=== PATIENT | female | born 1950 ===

== ENCOUNTER 2017-03-28 15:26 | Emergency (ER) | payer MEDICARE, MEDICAID ==
--- NOTE | ~2017-03-28 | ER ---
PATIENT'S NAME: SARATH VOGEL [facility] AGE: 66 Y [address] ROOM: [place] [id number] LOCATION: [facility] ADMIT DATE: 03/28/2017 ER/Outpatient Report DISCHARGE DATE: 03/28/2017 FAMILY PHYSICIAN: Luis Ríos MD ATTENDING PHYSICIAN: Joselito Flynn Time of Arrival: 1526 hours. Time of Evaluation: 1526 hours. CHIEF COMPLAINT: Lethargy and headache. HISTORY OF PRESENT ILLNESS: Daughter reports that the patient has been sleepy all day today. States she normally gets up early in the morning and is awake all day, however, today she seemed to be sleeping then. Daughter states she did go and run some errands, when she came back, the patient was still sleeping. When the patient does wake up, she was complaining of having a headache. The patient did agree to come to the ER for evaluation. The patient had to be assisted out of the car and onto a cart, but continues to complain of a headache. ALLERGIES: NO KNOWN ALLERGIES. CURRENT MEDICATIONS: Are on her chart, however, daughter reports that the patient has not been taking any of her medications for quite some time. When we called the Pharmacy, they said the last time they were refilled was in October. PAST MEDICAL HISTORY: Epx-ljnyrmv-dgrlbfplh diabetes, osteoporosis, hyperlipidemia, frequently has H. pylori. PAST SURGERIES: Cholecystectomy and hysterectomy. SOCIAL HISTORY: She lives at home, next door to her sister. Her grandson stays with her and helps her with food. The patient does smoke at least 2 packs per day and has for the last 40 years. Denies use of drugs and alcohol. Her in June 2016. Daughter reports she has been quite sad ever since that occurred. REVIEW OF SYSTEMS: All negative other than those mentioned in the HPI. PATIENT'S NAME: SARATH VOGEL [facility] AGE: 66 Y [address] ROOM: [place], [place] [address] LOCATION: [facility] ADMIT DATE: 03/28/2017 ER/Outpatient Report DISCHARGE DATE: 03/28/2017 FAMILY PHYSICIAN: Luis Ríos MD ATTENDING PHYSICIAN: Joselito Flynn PHYSICAL EXAMINATION: VITAL SIGNS: She weighed 72.4 kg, blood pressure is 171/77, pulse of 92, respirations 14, temperature of 98.8, and O2 saturation is 98% on room air. GENERAL: She is awake, is aware of the situation, knows her name, and states her birthday. States that she is cold and wants to go to sleep. She did vomit upon arrival to the room of bile colored fluid. Frequently states her head hurts. HEENT: Pupils are equal and reactive. EXTREMITIES: She moves all extremities strongly and equally. No peripheral edema noted. LUNGS: Lung sounds are clear throughout. HEART: Regular rate and rhythm. ABDOMEN: Quite round, distended, bowel sounds are present. EMERGENCY DEPARTMENT COURSE: Saline lock was initiated. Lab work was drawn. The patient was given Zofran 4 mg IV. Fluids were started at a wide-open rate. CBC shows a white count of 11.8, hemoglobin of 16.7, and hematocrit of 48.8. Chem panel: Sodium is 137, potassium is 4.2, and chloride is 104. Her Accu-Chek was 331. Her Chem panel shows a blood sugar of 348, BUN 13, and creatinine 0.8. GFR is greater than 60. Amylase is 19 with a lipase of 96. Lactate is 1.9. Acetone is negative. Procalcitonin is negative. EKG was completed, it shows a sinus rhythm. Cath UA was done, negative for leukocytes and nitrites, white blood cells negative, bacteria negative. Venous ABG shows a pH of 7.37, pCO2 of 43, and bicarb of 24.9. Head CT shows no acute abnormalities per the radiologist. Dr. Cole was contacted as she is on-call for Dr. Ríos. The patient was discussed. Did do a CT of the patient's abdomen, it shows a small pericardial effusion with lung basilar septal thickening and ground-glass opacities. No bowel obstruction is seen. She does have moderate hepatic steatosis and hepatomegaly. The patient continued to rest comfortably and did not have any more vomiting here in the ER. We did give her Toradol 30 mg IV for headache. Vital signs remained stable. I did discuss the patient with Dr. Cole again after the abdominal CT scan was completed. Dr. Cole reports patients blood sugars at office have been 290 or higher. IMPRESSION: Fatigue Hyperglycemia Headache PLAN: The patient is to be discharged home, rest, and talked with the family about encouraging the patient to take her medications as prescribed. The patient is to follow up with Dr. Ríos tomorrow and her daughter states that she will be sure and get her there. If they have any more problems tonight, they are welcome to return to the ER. Dr. Cole agreed with the plan of care. The patient and family agreed with the plan of care. Upon discharge to the car, patient was awake and asking for a cigarette. PATIENT'S NAME: SARATH VOGEL [facility] AGE: 66 Y [address] ROOM: [place] [address] LOCATION: [facility] ADMIT DATE: 03/28/2017 ER/Outpatient Report DISCHARGE DATE: 03/28/2017 FAMILY PHYSICIAN: Luis Ríos MD ATTENDING PHYSICIAN: Joselito Flynn NORMA BURNS APRN FOR DO DIDI MORA/josé /[id number] d: 03/29/17 0234 t: 03/30/17 0931, OUTPATIENT REPORT
[2017-03-28 15:51] LABS: BASOPHIL # 0.1 K/uL (0.0-0.2); BASOPHIL % 0.7 %; EOSINOPHIL % 0.1 %; HEMATOCRIT 48.8 % (33.0-46.0); HEMOGLOBIN 16.7 g/dL (10.0-15.0); IMMATURE GRANULOCYTE # 0.1 K/uL (0.0-0.3); IMMATURE GRANULOCYTE % 0.5 %; LYMPHOCYTE # 1.5 K/uL (0.8-4.0); LYMPHOCYTE % 12.8 %; MCH 30.8 pg (27.0-34.0); MCHC 34.2 gm/dL (32.0-36.5); MCV 89.9 fl (83.0-98.0); MONOCYTE # 0.4 K/uL (0.0-1.0); MONOCYTE % 3.2 %; MPV 11.4 fl (9.4-12.4); NEUTROPHIL # (ANC) 9.8 K/uL (1.8-7.8); NEUTROPHIL % 82.7 %; NRBC % 0 /100WBC (0-0.00); PLATELET COUNT 216 K/uL (150-450); RBC 5.43 M/uL (3.50-5.50); RDW-CV 11.9 % (11.9-14.6); WBC 11.8 K/uL (4.0-11.0)
[2017-03-28 16:13] LABS: ALBUMIN 3.6 gm/dL (3.5-5.0); ALK PHOS 102 IU/L (33-138); ALT 34 IU/L (12-78); ANION GAP 14.2 (10.0-19.0); AST 17 IU/L (10-40); BLOOD UREA NITROGEN 13 mg/dL (6-24); CHLORIDE 104 mMol/L (96-110); CO2 23 mMol/L (22-32); CREATININE 0.8 mg/dL (0.5-1.1); ESTIMATED GFR (MDRD EQUATION) > 60; POTASSIUM 4.2 mMol/L (3.7-5.1); SODIUM 137 mMol/L (135-145); TOTAL BILIRUBIN 0.6 mg/dL (0.0-1.5); TOTAL PROTEIN 7.3 g/dL (6.0-8.4)
[2017-03-28 17:07] LABS: BILIRUBIN URINE NEGATIVE (NEGATIVE); BLOOD URINE 10 /UL (NEGATIVE); COLOR URINE YELLOW (YELLOW); GLUCOSE URINE 1000 mg/dL (NEGATIVE); KETONE URINE 15 mg/dL (NEGATIVE); LEUKOCYTES URINE NEGATIVE /UL (NEGATIVE); NITRITE URINE NEGATIVE (NEGATIVE); PROTEIN URINE 30 mg/dL (NEGATIVE); TURBIDITY URINE 1+ (CLEAR); UROBILINOGEN URINE NORMAL (NORMAL)
[2017-03-28 17:40] LABS: BICARBONATE 24.9 mmol/L (18.0-23.0); PCO2 43 mmHg (35-45)
[2017-03-28 17:42] LABS: PO2 44 mmHg (80-90)
[2017-03-28 17:56] LABS: BACTERIA URINE NEGATIVE (NEGATIVE); RBC URINE RARE #/HPF (NEGATIVE); WBC URINE NEGATIVE #/HPF (NEGATIVE)
== END 2017-03-28 19:36 | disposition disaster alternative care site (69) ==
LOC: GMED 15:26
PROVIDERS: Nurse Practitioner Family
PROC: 0T9B70Z Drainage of Bladder with Drainage Device, Via Natural or Artificial Opening (ICD-10-PCS; principal; 2017-03-28)
DX: E11.65 Type 2 diabetes mellitus with hyperglycemia (principal); M81.0 Age-related osteoporosis without current pathological fracture; R51 Headache; Z90.49 Acquired absence of other specified parts of digestive tract; Z79.899 Other long term (current) drug therapy; Z90.710 Acquired absence of both cervix and uterus; Z79.84 Long term (current) use of oral hypoglycemic drugs; F17.210 Nicotine dependence, cigarettes, uncomplicated
CPT/HCPCS: J1885; J2405; Q9967